=== PATIENT | female | born 1955 | race Two or more races ===

== ENCOUNTER 2024-06-08 11:55 | Inpatient (IN) | payer MEDICAID, OTHER ==
[~2024-06-08] VITALS: Ht 160 cm; Wt 82.5 kg
--- NOTE | 2024-06-08 12:12 | ED.PDOC ---
GI ASSESSMENT HPI Comments 68 y.o female presents to the ED for a chief complaint of abdominal pain that started 5 days ago. Patient reports pain first presents to the right lower/pelvic region and now diffuses throughout upper portion of her abdomen. Patient has only tolerate puree foods and states pain worsens with fluid intake. Patient denies any nausea, vomiting, diarrhea, fever, chills or urinary symptoms. No medical history or allergies reported. Patient denies any sub stance, alcohol or tobacco use. No allergies reported. Chief Complaint: Pelvic Pain Time Seen by MD: 12:06 Reviewed Notes: Nurses Notes, Medications, Allergies Allergies: Coded Allergies: NO KNOWN ALLERGIES (Unverified , 06/08/24) Information Source: Patient Mode of Arrival: Ambulatory Timing: Days (5) Duration: Since onset Quality: Aching Vomitus: None Stool: Normal Severity: Moderate Recent: None Recent Hx of: None Pain Location: Diffuse, RLQ Modifying Factors: Nothing Associated sign and symptoms: Abdominal Pain Past Medical History PAST MEDICAL HISTORY: Denies Surgical History: Denies all surgeries PICTURE HANGER History: No Pertinent PICTURE HANGER History Family History Family History: Reviewed,noncontributory to illness, No family hx of Cancer, No family hx of DM, No family hx of Heart umm, No family hx of HTN, No family hx ofKidney umm, No family hx of Liver umm, No family hx of Lung umm, No family hx of Stroke Social History Smoker: Non-Smoker Alcohol: Denies ETOH Use Drugs: Denies Drug Use Lives In: Home Constitutional: denies: chills, diaphoresis, fatigue, fever, malaise, sweats, weakness, others EENTM: denies: blurred vision, double vision, ear bleeding, ear discharge, ear drainage, ear pain, ear ringing, eye pain, eye redness, hearing loss, mouth pain, mouth swelling, nasal discharge, nose bleeding, nose congestion, nose pain, photophobia, tearing, throat pain, throat swelling, voice changes, others Respiratory: denies: cough, hemoptysis, orthopnea, SOB at rest, shortness of breath, SOB with excertion, stridor, wheezing, others Cardiovascular: denies: chest pain, dizzy spells, diaphoresis, Dyspnea on exertion, edema, irregular heart beat, left arm pain, lightheadedness, palpitations, PND, syncope, others Gastrointestinal: reports: abdominal pain; denies: abdomen distended, blood streaked bowels, constipated, diarrhea, dysphagia, difficulty swallowing, hematemesis, melena, nausea, poor appetite, poor fluid intake, rectal bleeding, rectal pain, vomiting, others Genitourinary: denies: abnormal vagina bleeding, burning, dyspareunia, dysuria, flank pain, frequency, hematuria, incontinence, pain, , vagina discharge, urgency, others Neurological: denies: dizziness, fainting, headache, left sided numbness, left sided weakness, numbness, paresthesia, pre-existing deficit, right sided numbness, right sided weakness, seizure, speech problems, tingling, tremors, weakness, others Musculoskeletal: denies: back pain, gout, joint pain, joint swelling, muscle pain, muscle stiffness, neck pain, others Integumetry: denies: bruises, change in color, change in hair/nails, dryness, laceration, lesions, lumps, rash, wounds, others Allergic/Immunocompromised: denies: Difficulty Healing, Frequent Infections, Hives, Itching, others Hematologic/Lymphatic: denies: anemia, blood clots, easy bleeding, easy bruising, swollen glands, others Endocrine: denies: excessive hunger, excessive sweating, excessive thirst, excessive urination, flushing, intolerance to cold, intolerance to heat, unexplained weight gain, unexplained weight loss, others Psychiatric: denies: anxiety, bipolar disorder, depression, hopeless, panic disorder, schizophrenia, sleepless, suicidal, others All Other Systems: Reviewed and Negative Physical Exam General Appearance: Moderate Distress HEENT: Normal ENT Inspection, Pharynx Normal, TMs Normal Neck: Full Range of Motion, Non-Tender, Normal, Normal Inspection Respiratory: Chest Non-Tender, Lungs Clear, No Accessory Muscle Use, No Respiratory Distress, Normal Breath Sounds Cardiovascular: No Edema, No JVD, No Murmur, No Gallop, Normal Peripheral Pulses, Regular Rate/Rhythm Breast Exam: Deferred Gastrointestinal: No Organomegaly, Non Tender, No Pulsatile Mass, Normal Bowel Sounds, Soft Genitalia: Deferred Pelvic: Deferred Rectal: Deferred Extremities: No calf tenderness, Normal capillary refill, Normal inspection, Normal range of motion, Non-tender, No pedal edema Musculoskeletal : Apperance: Normal Neurologic: Alert, basting cleaner II-XII nml as Tested, No Motor Deficits, Normal Affect, Normal Mood, No Sensory Deficits Cerebellar Function: NOT DONE Reflexes: NOT DONE Skin: Dry, Normal Color, Warm Peripheral Pulses: 3+ Radial (R), 3+ Radial (L) Lymphatic: No Adenopathy Was a procedure done? Was a procedure done?: No GI differential Dx Differential Diagnosis: Constipation, Diverticular disease, Esophagitis, Gastritis/PUD, Gastroenteritis, Inflammatory BD, Ovarian cyst/torsion X-Ray, Labs, Meds, VS Vital Signs Date Time Temp Pulse Resp B/P (MAP) Pulse Ox O2 Delivery O2 Flow Rate FiO2 06/08/24 14:36 66 16 96 Room Air 06/08/24 14:36 98.7 66 17 160/71 (100) 96 98.7 06/08/24 12:05 97.9 86 18 164/86 (112) 96 Lab Test 06/08/24 12:05 06/08/24 11:57 Range/Units White Blood Count 9.0 4.4-10.8 10^3/uL Red Blood Count 4.81 4.0-5.20 10^6/uL Hemoglobin 14.9 12.2-16.2 g/dL Hematocrit 43.8 36.0-46.0 % Mean Corpuscular Volume 91.1 80.0-100.0 fL Mean Corpuscular Hemoglobin 31.1 28.0-32.0 pg Mean Corpuscular Hemoglobin Concent 34.1 32.0-36.0 g/dL Red Cell Distribution Width 13.0 11.8-14.3 % Platelet Count 445 140-450 10^3/uL Mean Platelet Volume 7.0 6.9-10.8 fL Neutrophils (%) (Auto) 69.7 37.0-80.0 % Lymphocytes (%) (Auto) 20.3 10.0-50.0 % Monocytes (%) (Auto) 7.4 0.0-12.0 % Eosinophils (%) (Auto) 2.0 0.0-7.0 % Basophils (%) (Auto) 0.6 0.0-2.0 % Neutrophils # (Auto) 6.3 1.6-8.6 10 ^3/uL Lymphocytes # (Auto) 1.8 0.4-5.4 10 ^3/uL Monocytes # (Auto) 0.7 0-1.3 10 ^3/uL Eosinophils # (Auto) 0.2 0-0.8 10 ^3/uL Basophils # (Auto) 0.1 0-0.2 10 ^3/uL Nucleated Red Blood Cells 0.1 % Sodium Level 142 136-145 mmol/L Potassium Level 4.1 3.5-5.1 mmol/L Chloride Level 108 H 98-107 mmol/L Carbon Dioxide Level 25 20-31 mmol/L Anion Gap 9 5-15 Blood Urea Nitrogen < 5 L 9-23 mg/dL Creatinine 0.70 0.550-1.02 mg/dL Glomerular Filtration Rate Calc 94 >90 mL/min BUN/Creatinine Ratio 7.1 L 10.0-20.0 Serum Glucose 105 74-106 mg/dL Calcium Level 10.2 8.7-10.4 mg/dL Urine Color Colorless Yellow Urine Clarity Clear Clear Urine pH 7.0 5.0-9.0 Urine Specific [place] 1.003 1.001-1.035 Urine Protein Negative Negative Urine Ketones Negative Negative Urine Blood Negative Negative /uL Urine Nitrite Negative Negative Urine Bilirubin Negative Negative Urine Urobilinogen Normal Negative mg/dL Urine Leukocyte Esterase Negative Negative /uL Urine RBC None seen 0 - 4 /hpf Urine WBC None seen 0 - 5 /hpf Urine Squamous Epithelial Cells Few <5 /hpf Urine Bacteria None seen None Seen /hpf Urine Glucose Normal Normal mg/dL Patient alert. Complaining of abdominal pain. Vitals stable. Answering all questions. Abdomen is soft. Continues to have abdominal pain. Possible colitis. Possible gastroenteritis. Explained to the patient. X-Ray, Labs, Meds, VS Comment CLINICAL INFORMATION: 68 years old, Female; enteritis. TECHNIQUE: Axial CT images of the abdomen and pelvis were obtained without IV contrast. Coronal and sagittal reformatted images were obtained, reviewed, and stored. Evaluation of the parenchymal organs is limited without IV contrast. Evaluation of the bowel and mesentery is limited without oral contrast. All CT scans at this medical facility are performed using dose modulation techniques as appropriate to a performed exam including the following: Automated exposure control was utilized; adjustment of the MA and/or KV according to patient size; and use of iterative reconstruction technique. CTDIvol = 20.04 mGy DLP = 1056.39 mGy-cm COMPARISON: None FINDINGS: Lung bases: Atelectasis in the lung bases. Liver: Grossly unremarkable in its noncontrast enhanced appearance. No abnormal density or focal lesion identified. Biliary: Calcified gallstones in the gallbladder. Spleen: Unremarkable. Pancreas: Grossly unremarkable in its noncontrast enhanced appearance. Adrenal glands: 2.6 cm left adrenal nodule, most likely a lipid rich adenoma. Kidneys: No hydronephrosis. No renal or ureteral calculi. Aorta/Vascular: Scattered mild atherosclerotic calcification. No abdominal aortic aneurysm. Retroperitoneum: No mass or lymphadenopathy. Bowel/mesentery: No small bowel obstruction. Appendix is thickened appendix, measuring up to 1 cm in thickness with moderate periappendiceal stranding and trace fluid, consistent with acute appendicitis in the appropriate clinical setting. Scattered small colonic diverticula without adjacent inflammatory changes to suggest diverticulitis. Pelvic organs: Grossly unremarkable. Bladder: Unremarkable. No mass. Abdominal wall: No mass or hernia. Bones: No acute fracture or suspicious intraosseous lesion. IMPRESSION: 1. Findings consistent with acute appendicitis in the appropriate clinical setting. No CT evidence for perforation or abscess at this time. 2. Cholelithiasis. 3. 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 4. Additional findings as detailed above Time of 1ST Reevaluation: 12:10 Reevaluation 1ST: Unchanged Patient Education/Counseling: Diagnosis, Treatment, Prognosis Family Education/Counseling: No Family Present Departure 1 Departure Time of Disposition: 12:28 Impression: Primary Impression: Acute appendicitis Qualified Codes: K35.80 - Unspecified acute appendicitis Additional Impression: Nonspecific colitis Disposition: ADMITTED INPATIENT Admit to: Med Surg Condition: Guarded Critical Care Note Critical Care Time?: Yes (45 min-critical care time only) Stability Stability form required: No I personally scribed for KAMILA AMAYA MD ([email or web address]) on 06/08/24 at 12:12. Electronically submitted by Malou Oneill ([facility]). I personally scribed for KAMILA AMAYA MD ([email or web address]) on 06/08/24 at 15:17. Electronically submitted by Malou Oneill ([facility]). KAMILA AMAYA MD Jun 08, 2024 12:12
[2024-06-08 12:22] LABS: Urine Bacteria None Seen /hpf (None Seen); Urine WBC None Seen /hpf (0 - 5)
[2024-06-08 12:28] LABS: Basophils # (auto) 0.1 10 ^3/uL (0-0.2); Basophils % (auto) 0.6 % (0.0-2.0); Eosinophils # (auto) 0.2 10 ^3/uL (0-0.8); Hematocrit 43.8 % (36.0-46.0); Hemoglobin 14.9 g/dL (12.2-16.2); Lymphocytes # (auto) 1.8 10 ^3/uL (0.4-5.4); Lymphocytes % (auto) 20.3 % (10.0-50.0); Mean Corpuscular Hemoglobin 31.1 pg (28.0-32.0); Mean Corpuscular Hgb Conc. 34.1 g/dL (32.0-36.0); Mean Corpuscular Volume 91.1 fL (80.0-100.0); Monocytes # (auto) 0.7 10 ^3/uL (0-1.3); Monocytes % (auto) 7.4 % (0.0-12.0); Neutrophils # (auto) 6.3 10 ^3/uL (1.6-8.6); Neutrophils % (auto) 69.7 % (37.0-80.0); Nucleated Red Blood Cells % 0.1 %; Platelet Count (auto) 445 10^3/uL (140-450); Red Blood Cells 4.81 10^6/uL (4.0-5.20)
[2024-06-08 12:32] LABS: Urine Blood Negative /uL (Negative); Urine Clarity Clear (Clear); Urine Color Colorless (Yellow); Urine Protein, UAD Negative (Negative); Urine Specific Gravity 1.003 (1.001-1.035); Urine Urobilinogen Normal (Negative)
[2024-06-08 13:08] LABS: Chloride 108 mmol/L (98-107); Potassium 4.1 mmol/L (3.5-5.1); Sodium 142 mmol/L (136-145)
[2024-06-08 13:09] LABS: Anion Gap 9 (5-15); Carbon Dioxide 25 mmol/L (20-31)
[2024-06-08 13:10] LABS: Calcium 10.2 mg/dL (8.7-10.4)
[2024-06-08 13:14] LABS: Glucose 105 mg/dL (74-106)
[2024-06-08 13:49] LABS: BUN/Creatinine Ratio 7.1 (10.0-20.0); Blood Urea Nitrogen < 5 mg/dL (9-23)
--- NOTE | 2024-06-08 15:03 | DVH ---
CLINICAL INFORMATION: 68 years old, Female; enteritis. TECHNIQUE: Axial CT images of the abdomen and pelvis were obtained without IV contrast. Coronal and sagittal reformatted images were obtained, reviewed, and stored. Evaluation of the parenchymal organs is limited without IV contrast. Evaluation of the bowel and mesentery is limited without oral contra st. All CT scans at this medical facility are performed using dose modulation techniques as appropria te to a performed exam including the following: Automated exposure control was utilized; adjustment o f the MA and/or KV according to patient size; and use of iterative reconstruction technique. CTDIvol = 20.04 mGy DLP = 1056.39 mGy-cm COMPARISON: None FINDINGS: Lung bases: Atelectasis in the lung bases. Liver: Grossly unremarkable in its noncontrast enhanced appearance. No abnormal density or focal les ion identified. Biliary: Calcified gallstones in the gallbladder. Spleen: Unremarkable. Pancreas: Grossly unremarkable in its noncontrast enhanced appearance. Adrenal glands: 2.6 cm left adrenal nodule, most likely a lipid rich adenoma. Kidneys: No hydronephrosis. No renal or ureteral calculi. Aorta/Vascular: Scattered mild atherosclerotic calcification. No abdominal aortic aneurysm. Retroperitoneum: No mass or lymphadenopathy. Bowel/mesentery: No small bowel obstruction. Appendix is thickened appendix, measuring up to 1 cm in thickness with moderate periappendiceal stranding and trace fluid, consistent with acute appendicitis in the appropriate clinical setting. Scattered small colonic diverticula without adjacent inflammato ry changes to suggest diverticulitis. Pelvic organs: Grossly unremarkable. Bladder: Unremarkable. No mass. Abdominal wall: No mass or hernia. Bones: No acute fracture or suspicious intraosseous lesion. IMPRESSION: 1. Findings consistent with acute appendicitis in the appropriate clinical setting. No CT evidence fo r perforation or abscess at this time. 2. Cholelithiasis. 3. 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 4. Additional findings as detailed above
[2024-06-08] MEDS: ceFAZolin 1GM/50ML 50 ML IV ONE (16:36)
[2024-06-08 19:25] VITALS: PULSE 66; RESP 16; O2SAT 96
--- NOTE | 2024-06-08 21:28 | DVHHP2 ---
History of Present Illness Reason for Visit: Acute appendicitis History of Present Illness The patient is a 68-year-old female who denies past medical history presented to [facility] ED with complaint of abdominal pain for a proximally 5 days duration. Patient reports symptoms progressively get worse with right lowe r/pelvic region diffuse abdominal pain, rating pain 8/10 numeric scale, getting worse today that prompted this visit. Patient was seen and evaluated in the ED, laboratory data shows WBC 9.0, platelets 445, sodium 142, potassium 4.1, BUN 5, creatinine 0.70, glucose 105. Abdomen/pelvis CT revealing acute appendicitis in the appropriate clinical setting, cholelithiasis. Patient was started on IV antibiotic regimen Ancef, please see medication orders section in the computer. On my assessment, patient denied chest pain, no headache, no dizziness, no diaphoresis, no shortness of breath, no nausea, no vomiting, no fever, no chi lls. Patient was admitted for further evaluation and medical management. Past Medical History Denies past medical history Past Surgical History Denies all surgeries Family History Reviewed, noncontributory to the management of this case. Past Social History The patient lives at home, denies smoking, alcohol or illicit drugs abuse. Review of Systems Constitutional: No: Fever, Chills, Sweats, Weakness, Malaise, Other Eyes: No: Pain, Vision change, Conjunctivae inflammation, Eyelid inflammation, Other, Redness ENT: No: Ear pain, Ear discharge, Nose pain, Nose discharge, Nose congestion, Mouth pain, Mouth swelling, Throat pain, Throat swelling, Other Respiratory: No: Cough, Dry, Shortness of breath, SOB with excertion, Wheezing, Hemoptysis, Pleuritic Pain, Sputum, Wheezing, Other Cardiovascular: No: Chest Pain, Palpitations, Orthopnea, Paroxysmal Noc. Dyspnea, Edema, Lt Headedness, Other Gastrointestinal: Abdominal Pain; No: Nausea, Vomiting, Diarrhea, Constipation, Melena, Hematochezia, Other Genitourinary: No Dysuria, No Frequency, No Incontinence, No Hematuria, No Retention, No Other Musculoskeletal: No: other, neck pain, shoulder pain, arm pain, back pain, hand pain, leg pain, foot pain Skin: No: Rash, Lesions, Jaundice, Bruising, Other Neurological: No: Weakness, Numbness, Incoordination, Change in speech, Confusi on, Seizures, Other Allergies: Coded Allergies: NO KNOWN ALLERGIES (Unverified , 06/08/24) Exam Vital Signs Vital Signs Date Time Temp Pulse Resp B/P (MAP) Pulse Ox O2 Delivery O2 Flow Rate FiO2 06/08/24 19:25 66 16 96 Room Air* 0 21 06/08/24 19:23 164/69 (100) 06/08/24 16:26 98.6 98.6 General Appearance: Alert, Oriented X3, Cooperative, No acute distress HEENT: Atraumatic, PERRLA, EOMI, Mucous membr. moist/pink Respiratory: Clear to auscultation, Normal air movement Cardiovascular: Regular rate, Normal S1, Normal S2, No murmurs Abdominal: Normal bowel sounds, Soft, No hepatospenomegaly, No masses, Other (Reports tenderness) Extremities: No clubbing, No cyanosis, No edema, Normal pulses, No tenderness/swelling Skin: No rashes, No breakdown, No significant lesion Neuro: Normal gait, Normal speech, Strength at 5/5 X4 ext, Normal tone, Sensati on intact, Cranial nerves 3-12 NL, Reflexes 2+ Psych/Mental Status: Mental status NL, Mood NL Labs/Xrays Labs Test 06/08/24 12:05 06/08/24 11:57 Range/Units White Blood Count 9.0 4.4-10.8 10^3/uL Red Blood Count 4.81 4.0-5.20 10^6/uL Hemoglobin 14.9 12.2-16.2 g/dL Hematocrit 43.8 36.0-46.0 % Mean Corpuscular Volume 91.1 80.0-100.0 fL Mean Corpuscular Hemoglobin 31.1 28.0-32.0 pg Mean Corpuscular Hemoglobin Concent 34.1 32.0-36.0 g/dL Red Cell Distribution Width 13.0 11.8-14.3 % Platelet Count 445 140-450 10^3/uL Mean Platelet Volume 7.0 6.9-10.8 fL Neutrophils (%) (Auto) 69.7 37.0-80.0 % Lymphocytes (%) (Auto) 20.3 10.0-50.0 % Monocytes (%) (Auto) 7.4 0.0-12.0 % Eosinophils (%) (Auto) 2.0 0.0-7.0 % Basophils (%) (Auto) 0.6 0.0-2.0 % Neutrophils # (Auto) 6.3 1.6-8.6 10 ^3/uL Lymphocytes # (Auto) 1.8 0.4-5.4 10 ^3/uL Monocytes # (Auto) 0.7 0-1.3 10 ^3/uL Eosinophils # (Auto) 0.2 0-0.8 10 ^3/uL Basophils # (Auto) 0.1 0-0.2 10 ^3/uL Nucleated Red Blood Cells 0.1 % Sodium Level 142 136-145 mmol/L Potassium Level 4.1 3.5-5.1 mmol/L Chloride Level 108 H 98-107 mmol/L Carbon Dioxide Level 25 20-31 mmol/L Anion Gap 9 5-15 Blood Urea Nitrogen < 5 L 9-23 mg/dL Creatinine 0.70 0.550-1.02 mg/dL Glomerular Filtration Rate Calc 94 >90 mL/min BUN/Creatinine Ratio 7.1 L 10.0-20.0 Serum Glucose 105 74-106 mg/dL Calcium Level 10.2 8.7-10.4 mg/dL Urine Color Colorless Yellow Urine Clarity Clear Clear Urine pH 7.0 5.0-9.0 Urine Specific [place] 1.003 1.001-1.035 Urine Protein Negative Negative Urine Ketones Negative Negative Urine Blood Negative Negative /uL Urine Nitrite Negative Negative Urine Bilirubin Negative Negative Urine Urobilinogen Normal Negative mg/dL Urine Leukocyte Esterase Negative Negative /uL Urine RBC None seen 0 - 4 /hpf Urine WBC None seen 0 - 5 /hpf Urine Squamous Epithelial Cells Few <5 /hpf Urine Bacteria None seen None Seen /hpf Urine Glucose Normal Normal mg/dL PATIENT: ANN VILLASEÑORSUSACCT: [id number] UNIT: [id number] : 1955 LOC: ER ROOM / BED: / AGE / SEX: 68 / F ADM STATUS: REG ER SERVICE [id number] ORDERING PHYSICIAN: KAMILA AMAYA MD PROCEDURE(s): ABPL - CT AB PEL WO CON-NO ORAL OR IV REASON: enteritis ORDER NUMBER(s): [id number], ACCESSION NUMBER(s): [id number] CLINICAL INFORMATION: 68 years old, Female; enteritis. TECHNIQUE: Axial CT images of the abdomen and pelvis were obtained without IV contrast. Coronal and sagittal reformatted images were obtained, reviewed, and stored. Evaluation of the parenchymal organs is limited without IV contrast. Evaluation of the bowel and mesentery is limited without oral contrast. All CT scans at this medical facility are performed using dose modulation techniques as appropriate to a performed exam including the following: Automated exposure control was utilized; adjustment of the MA and/or KV according to patient size; and use of iterative reconstruction technique. CTDIvol = 20.04 mGy DLP = 1056.39 mGy-cm COMPARISON: None FINDINGS: Lung bases: Atelectasis in the lung bases. Liver: Grossly unremarkable in its noncontrast enhanced appearance. No abnormal density or focal lesion identified. Biliary: Calcified gallstones in the gallbladder. Spleen: Unremarkable. Pancreas: Grossly unremarkable in its noncontrast enhanced appearance. Adrenal glands: 2.6 cm left adrenal nodule, most likely a lipid rich adenoma. Kidneys: No hydronephrosis. No renal or ureteral calculi. Aorta/Vascular: Scattered mild atherosclerotic calcification. No abdominal aortic aneurysm. Retroperitoneum: No mass or lymphadenopathy. Bowel/mesentery: No small bowel obstruction. Appendix is thickened appendix, measuring up to 1 cm in thickness with moderate periappendiceal stranding and trace fluid, consistent with acute appendicitis in the appropriate clinical setting. Scattered small colonic diverticula without adjacent inflammatory changes to suggest diverticulitis. Pelvic organs: Grossly unremarkable. Bladder: Unremarkable. No mass. Abdominal wall: No mass or hernia. Bones: No acute fracture or suspicious intraosseous lesion. IMPRESSION: 1. Findings consistent with acute appendicitis in the appropriate clinical s etting. No CT evidence for perforation or abscess at this time. 2. Cholelithiasis. 3. 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 4. Additional findings as detailed above Assessment/Plan Assessment/Plan Acute appendicitis Nonspecific colitis Unspecified acute appendicitis Plan 1. Admit to telemetry unit 2. Breathing treatment 3. Pain control management 4. IV antibiotic management 5. Management of fluids and electrolytes 6. Consultation for surgery 7. Diagnostic test abdomen/pelvis CT 8. DVT prophylaxis on SCDs 9. Repeat labs CBC, CMP in a.m. 10. Home medication reviewed and reconciled 11. Continue with current medical management 12. Treatment plan discussed with patient and RN. Patient verbalized underst anding. Plan discussed with: Patient, Other (RN) My Orders Orders - LADONNA MONTGOMERY DNP Procedure Category Date Status Time Cefazolin Ancef PHA 06/08/24 Transmitted 22:00 Admit ADMIT 06/08/24 Transmitted 21:19 Allergies MARIEL 06/08/24 Transmitted 21:19 Code Status CODE 06/08/24 Transmitted 21:19 Sodium Chloride Lock PHA 06/08/24 Transmitted (Saline Lock Ns) 22:00 Oxygen Per Hour RT 06/08/24 Transmitted 21:19 Hydrocodone-Acet PHA 06/08/24 Transmitted 5/325mg Tab (Henry 21:30 Ondansetron Hcl PHA 06/08/24 Transmitted (Zofran) 21:30 Docusate Sodium PHA 06/08/24 Transmitted Capsule (Colace 21:30 Complete Blood Count LAB 06/09/24 Verified 04:00 Comprehensive LAB 06/09/24 Verified Metabolic Panel 04:00 Npo (Nothing By DIET 06/09/24 Transmitted Mouth) Diet Breakfast Condition: Serious [facility] 06/08/24 Transmitted 21:19 Acetaminophen Tablet [facility] 06/08/24 Transmitted (Tylenol Tablet) 21:30 Bedrest With Bathroom MARIEL 06/08/24 Transmitted Privileg 21:19 Morphine Sulfate [facility] 06/08/24 Transmitted Injection 21:30 Sequential [facility] 06/08/24 Transmitted Compression Device Nitroglycerin [facility] 06/08/24 Transmitted Sublingual (Ntrostat 21:30 Morphine Sulfate PHA 06/08/24 Transmitted Injection 21:30 Notify Md Of Changes [facility] 06/08/24 Transmitted From Base 21:19 Dental Receptionist For [facility] 06/08/24 Transmitted 24 Hours 21:19 Emergency Dysrhythmia [facility] 06/08/24 Transmitted Protocol 21:19 Rhythm Strips Once [facility] 06/08/24 Transmitted Every Shift 21:19 Oxygen By Nasal RT 06/08/24 Transmitted Cannula 21:19 D5w/Sod Chl 0.45% 1/2 [facility] 06/08/24 Transmitted NS 21:30 Problem List: (1) Acute appendicitis (2) Nonspecific colitis (3) Unspecified acute appendicitis Date of Service: Jun 08, 2024 Billing Provider: LADONNA MONTGOMERY DNP Common Visit Codes: [id number] INP/OBS CARE (HIGH) LADONNA MONTGOMERY DNP Jun 08, 2024 21:28
[2024-06-08] MEDS ORDERED: NITROGLYCERIN 0.4 MG SL TAB SL PRN (21:30)
[2024-06-08] MEDS ORDERED: ACETAMINOPHEN 325 MG TAB PO PRN (21:30)
[2024-06-08] MEDS ORDERED: HYDROcodone-ACET 5/325MG TAB PO PRN (21:30)
[2024-06-08] MEDS ORDERED: ONDANSETRON HCL 4 MG/2 ML VIAL IV PRN (21:30)
[2024-06-08] MEDS ORDERED: MORPHINE SULFATE INJ 2 MG/ml SYRG IV PRN (21:30)
[2024-06-08] MEDS ORDERED: DOCUSATE SOD 100 MG CAP PO PRN (21:30)
[2024-06-08] MEDS: SODIUM CHLOR 0.9% PF (SALINE LOCK) 10ML VIAL/SYR IV SCH (22:02)
[2024-06-08] MEDS: ceFAZolin 1GM/50ML 50 ML IV SCH (22:02)
[2024-06-08] MEDS: D5W/SOD CHL 0.45% 1,000 ML IV SCH (22:02)
[2024-06-08 23:45] VITALS: BP 178/86; PULSE 74; RESP 18; TEMP 98; O2SAT 0; O2SAT 95
[2024-06-09] VITALS (10 sets, daily range): BP systolic 139–178; BP diastolic 76–86; PULSE 66–92; RESP 16–19; TEMP 97.8–98.8; O2SAT 92–96
[2024-06-09 06:29] LABS: Basophils # (auto) 0.1 10 ^3/uL (0-0.2); Basophils % (auto) 0.7 % (0.0-2.0); Eosinophils # (auto) 0.1 10 ^3/uL (0-0.8); Eosinophils % (auto) 1.3 % (0.0-7.0); Hematocrit 40.9 % (36.0-46.0); Hemoglobin 14.1 g/dL (12.2-16.2); Lymphocytes # (auto) 1.4 10 ^3/uL (0.4-5.4); Lymphocytes % (auto) 15.7 % (10.0-50.0); Mean Corpuscular Hemoglobin 31.7 pg (28.0-32.0); Mean Corpuscular Hgb Conc. 34.6 g/dL (32.0-36.0); Mean Corpuscular Volume 91.6 fL (80.0-100.0); Monocytes # (auto) 0.7 10 ^3/uL (0-1.3); Monocytes % (auto) 7.9 % (0.0-12.0); Neutrophils # (auto) 6.9 10 ^3/uL (1.6-8.6); Neutrophils % (auto) 74.4 % (37.0-80.0); Platelet Count (auto) 428 10^3/uL (140-450); Red Blood Cells 4.47 10^6/uL (4.0-5.20); Red Cell Distribution Width 12.8 % (11.8-14.3); White Blood Cell 9.2 10^3/uL (4.4-10.8)
[2024-06-09 06:44] LABS: Alanine Aminotransferase 25 U/L (7-40); Albumin 4.4 g/dL (3.2-4.8); Alkaline Phosphatase 125 U/L (46-116); Anion Gap 10 (5-15); Aspartate Aminotransferase 50 U/L (13-40); Bilirubin, Total 0.6 mg/dL (0.2-1.0); Calcium 9.8 mg/dL (8.7-10.4); Carbon Dioxide 24 mmol/L (20-31); Chloride 107 mmol/L (98-107); Glucose 143 mg/dL (74-106); Potassium 3.7 mmol/L (3.5-5.1); Sodium 141 mmol/L (136-145); Total Protein 7.3 g/dL (5.7-8.2)
[2024-06-09 06:51] LABS: BUN/Creatinine Ratio 7.5 (10.0-20.0); Blood Urea Nitrogen < 5 mg/dL (9-23)
[2024-06-09] MEDS: MORPHINE SULFATE INJ 2 MG/ml SYRG IV PRN ×2 (13:04→20:30)
[2024-06-09] MEDS: HEPARIN SODIUM (PORCINE) 5000 UNITS/ML 1ML VIAL ONE (15:26)
--- NOTE | 2024-06-09 16:55 | DVH ---
EXAM: XY CHEST XRAY 1 VIEW TECHNIQUE: Single frontal chest radiograph CLINICAL HISTORY: pre op COMPARISON: None Findings/Impression: Frontal chest radiograph demonstrates no acute osseous or superficial soft tissue abnormalities. The trachea is midline. The cardiac silhouette and mediastinum are within normal limits. Moderate low lung volumes with bronchovascular crowding. No pneumothorax, pleural effusions, or consolidations.
[2024-06-09] MEDS ORDERED: fentaNYL CITRATE 100 MCG/2 ML VL ONE (17:00)
[2024-06-09] MEDS ORDERED: ROCURONIUM 10MG/ML 10ML VIAL IV ONE (17:00)
[2024-06-09] MEDS ORDERED: PROPOFOL 10 MG/ML 20 ML IV ONE (17:00)
[2024-06-09] MEDS ORDERED: SUCCINYLCHOLINE CHLORIDE 20 MG/ML 10ML VIAL IV ONE (17:02)
--- NOTE | 2024-06-09 17:07 | DVHPN2 ---
Subjective I am assuming the care of the patient from today onwards who was under the care of the hospitalist team. To be noted patient does have diagnosis of acute appendicitis, General surgery was never notified until I came to see the patient. General surgery has been consulted now. Reviewed: Care Plan Changes from previous H/P or p: No Changes Eyes: No Pain, No Vision change, No Conjunctivae inflammation, No Eyelid inflammation, No Other, No Redness ENT: No Ear pain, No Ear discharge, No Nose pain, No Nose discharge, No Nose congestion, No Mouth pain, No Mouth swelling, No Throat pain, No Throat swelling, No Other Cardiovascular: No Chest Pain, No Palpitations, No Orthopnea, No Paroxysmal Noc. Dyspnea, No Edema, No Lt Headedness, No Other Respiratory: No Cough, No Dry, No Shortness of breath, No SOB with excertion, No Wheezing, No Hemoptysis, No Pleuritic Pain, No Sputum, No Other Gastrointestinal: No Nausea, No Vomiting; Abdominal Pain; No Diarrhea, No Constipation, No Melena, No Hematochezia, No Other Genitourinary: No Dysuria, No Frequency, No Incontinence, No Hematuria, No Retention, No Other Musculoskeletal: No other, No neck pain, No shoulder pain, No arm pain, No back pain, No hand pain, No leg pain, No foot pain Skin: No Rash, No Lesions, No Jaundice, No Bruising, No Other Objective Vitals Vital Signs Date Time Temp Pulse Resp B/P (MAP) Pulse Ox O2 Delivery O2 Flow Rate FiO2 06/09/24 13:04 69 18 148/77 06/09/24 13:00 98.0 94 98.0 06/09/24 08:00 Room Air* 0 21 Intake/Output Intake and Output 06/09/24 07:00 Intake Total 150 ml Balance 150 ml Intake Oral 0 ml IV Total 150 ml Exam HEENT pupils are reactive Neck is supple CV is S1-S2 regular rate and rhythm History bilaterally GI positive bowel sounds soft positive tenderness in the right lower quadrant with no guarding no rigidity Extremity no edema [employer] no motor deficits Medications Current Medications Medications Dose Ordered Sig/Ulices Route Start Time Stop Time Status Last Admin Dose Admin Cefazolin Sodium 50 ml @ 100 mls/hr Q8HR IV 06/08/24 22:00 06/09/24 13:03 100 MLS/HR Sodium Chloride 10 ml Q8HR IV 06/08/24 22:00 06/09/24 13:04 10 ML Acetaminophen/ Hydrocodone Bitart 1 tab Q4HP PRN PO 06/08/24 21:30 Ondansetron HCl 4 mg Q4HP PRN IV 06/08/24 21:30 Docusate Sodium 100 mg BIDPRN PRN PO 06/08/24 21:30 Acetaminophen 650 mg Q6HP PRN PO 06/08/24 21:30 Morphine Sulfate 2 mg Q4HPRN PRN IV 06/08/24 21:30 06/09/24 13:04 2 MG Nitroglycerin 0.4 mg Q5MINP PRN SL 06/08/24 21:30 Morphine Sulfate 2 mg Q30M PRN IV 06/08/24 21:30 Dextrose/Sodium Chloride 1,000 ml @ 50 mls/hr Q20H IV 06/08/24 21:30 06/08/24 22:02 50 MLS/HR Laboratory Results Laboratory Tests 06/09/24 05:36 Chemistry Test 06/09/24 05:36 Albumin 4.4 g/dL (3.2-4.8) Calcium Level 9.8 mg/dL (8.7-10.4) Total Protein 7.3 g/dL (5.7-8.2) Coagulation Test 06/09/24 16:45 Prothrombin Time Pending Prothrombin Time INR Pending Activated Partial Thromboplast Time Pending LFT Test 06/09/24 05:36 Alanine Aminotransferase (ALT) 25 U/L (7-40) Alkaline Phosphatase 125 U/L (46-116) H Aspartate Amino Transferase (AST) 50 U/L (13-40) H Total Bilirubin 0.6 mg/dL (0.2-1.0) Urinalysis Test 06/08/24 11:57 Urine Color Colorless (Yellow) Urine Clarity Clear (Clear) Urine pH 7.0 (5.0-9.0) Urine Specific [place] 1.003 (1.001-1.035) Urine Protein Negative (Negative) Urine Ketones Negative (Negative) Urine Blood Negative /uL (Negative) Urine Nitrite Negative (Negative) Urine Bilirubin Negative (Negative) Urine Urobilinogen Normal mg/dL (Negative) Urine Leukocyte Esterase Negative /uL (Negative) Urine RBC None seen /hpf (0 - 4) Urine WBC None seen /hpf (0 - 5) Urine Squamous Epithelial Cells Few /hpf (<5) Urine Bacteria None seen /hpf (None Seen) Urine Glucose Normal mg/dL (Normal) Assessment/Plan Assessment/Plan 68-year-old female with no significant past medical history, presented to the hospital with abdominal pain in the right lower quadrant which worsens with the fluid intake found to have 1. Acute appendicitis without any perforation 2. Transaminitis 3. Moderate obesity class 1 -strict NPO, IV fluids, IV antibiotics, general surgery consultation -we will get baseline EKG, chest x-ray. Plan discussed with: Patient, Daughter My Orders Orders - CICI JARRETT MD Procedure Category Date Status Time * Surgical Consult CONS 06/09/24 Transmitted Chest Xray 1 View XY 06/09/24 Resulted 16:05 PTPTT LAB 06/09/24 In Process 16:29 Type And Screen BBK 06/09/24 In Process 16:31 Date of Service: Jun 09, 2024 Billing Provider: CICI JARRETT MD Common Visit Codes: [id number] INP/OBS CARE(HIGH), NOT BILLABLE CICI JARRETT MD Jun 09, 2024 17:07
[2024-06-09] MEDS ORDERED: metroNIDAZOLE 500MG/100ML 100 ML IV SCH (17:15)
[2024-06-09 17:23] LABS: INR 1.07 (0.9-1.15); Partial Thromboplastin Time 25.2 SEC (24.5-34.5); Prothrombin Time 11.3 sec (9.3-11.8)
[2024-06-09] MEDS: cefOXitin 2GM/100ML 100 ML IV ONE (17:35)
[2024-06-09] MEDS ORDERED: ePHEDrine SULFATE 50 MG/ML AMP ONE (17:51)
[2024-06-09] MEDS ORDERED: ONDANSETRON HCL 4 MG/2 ML VIAL ONE (17:52)
[2024-06-09] MEDS ORDERED: DexAMETHasone SOD PHOS 10MG/1ML VIAL INJ ONE (17:52)
[2024-06-09] MEDS: LIDOCAINE 1% HCL (LOCAL ANESTH.) INJ 20ML MDV ONE (17:57)
[2024-06-09] MEDS: BUPIVACAINE HCL 50 ML ONE (17:57)
[2024-06-09] MEDS ORDERED: MEPERIDINE HCL (50 MG/ML) 1 ML VIAL ONE (18:14)
[2024-06-09] MEDS ORDERED: SUGAMMADEX 200mg/2ml Vial (100MG/ML) IV ONE (18:38)
[2024-06-09] MEDS ORDERED: MEPERIDINE HCL (25 MG/ML) 1ML VIAL IV PRN (19:00)
[2024-06-09] MEDS ORDERED: ONDANSETRON HCL 4 MG/2 ML VIAL IV ONE (19:00)
[2024-06-09] MEDS ORDERED: HYDROcodone-ACET 10/325MG TAB PO PRN (19:00)
[2024-06-09] MEDS ORDERED: HYDROmorphone HCL 2 MG/ML VL/or syr IV PRN (19:00)
[2024-06-09] MEDS ORDERED: METOCLOPRAMIDE HCL 5MG/ml INJ 2ml VIAL IV ONE (19:00)
[2024-06-09] MEDS: D5W/SOD CHL 0.45% 1,000 ML IV SCH (20:21)
--- NOTE | 2024-06-09 20:26 | DVHOP ---
DATE OF SURGERY: 06/09/2024 PREOPERATIVE DIAGNOSIS: Acute appendicitis. POSTOPERATIVE DIAGNOSIS: Perforated acute appendicitis. PROCEDURES: Laparoscopic lysis of adhesions, drainage of intra-abdominal abscess and laparoscopic appendectomy. SURGEON: Benson Finley MD PENS AND PENCILS DIPPER: None. ANESTHESIOLOGIST: Dr. Bledsoe. ANESTHESIA: General by means of endotracheal intubation. INTRAOPERATIVE FINDINGS: Dense adhesions involving the terminal ileum over the appendix following number of appendix adherent to abdominal pelvic sidewall as well as to the cecum. Following number contained abscess. ESTIMATED BLOOD LOSS: Minimal. INTRAVENOUS FLUIDS: Per anesthesia charting. URINE OUTPUT: Not recorded, given Lopez catheter was not inserted. DRAINS: A 19 Hai drain. IMPLANTS: Endo-YARELIS kirk. SPECIMEN: Appendix. COMPLICATIONS: None other than difficult procedure secondary to above-mentioned intraoperative findings adding complexity as well as time to otherwise routine procedure. ESTIMATED BLOOD LOSS: Approximately 30 mL. Procedure well tolerated and transferred to recovery room in a stable condition. INDICATION FOR PROCEDURE: The patient is a 68-year-old female, who was admitted to the medical service last night. I was not called until 4:00 p.m. today, informing that the patient had acute appendicitis and was admitted to the medical service. Upon examination, the patient had a benign abdomen. However, CT scan findings demonstrated evidence of acute appendicitis. Based on the above-mentioned information, she was recommended to undergo a laparoscopic, possible open appendectomy. The procedure, risks and benefits were explained in a detailed and extensive fashion. All other questions were answered. She understood and agreed to proceed. DESCRIPTION OF PROCEDURE: The patient was taken to the operating room. She was placed in a dorsal decubitus position on the operating table. Once adequate anesthesia was achieved, the abdomen was widely prepped and draped. Anesthesia was achieved. The left arm was tucked to her side, paying careful attention on providing adequate positioning as well as padding to prevent any potential injuries. The abdomen and pelvis were widely prepped and draped in the usual sterile fashion. She received prophylactic antibiotics. My attention was directed towards the periumbilical region where local anesthesia consisting of 1% lidocaine, 0.5% Marcaine was infiltrated. The abdominal wall was retracted anteriorly by means of towel clamps and a Veress needle was inserted into the abdominal cavity. Pneumoperitoneum of 15 mmHg was achieved. My attention was then directed to the epigastric midline region where local anesthesia consisting of 1% lidocaine, 0.5% Marcaine was infiltrated. A 12-mm trocar was placed into the abdominal cavity and a 5-mm 30-degree laparoscope was inserted into the abdominal cavity. A thorough survey of the abdominal cavity did not reveal any evidence of injury or bleeding upon entry. The Veress needle was removed under direct laparoscopic visualization. My attention was directed towards the left side of the abdomen where 5-mm trocars x 2 were placed with preemptive local anesthesia as well as under direct laparoscopic visualization. The [email or web address] graspers were inserted into the abdominal cavity. The terminal ileum was adherent and covering the appendix. It was carefully dissected, revealing an acutely inflamed appendix with a contained small abscess. The abscess was immediately suctioned with a laparoscopic suction. The appendix was then carefully mobilized from the cecum. It had demonstrated perforation in the mid section of the appendix. The appendix was carefully dissected. A mesenteric window was created, in what was thought to be the base of the appendix, at the time. Using a 45-mm Endo-YARELIS stapler with a blue cartridge, the appendix was divided. The mesoappendix was divided with a white cartridge using a stapler device. Appendix was placed in an EndoCatch bag and exteriorized via the epigastric trocar site. The 12-mm trocar was then placed. The 5-mm 30-degree laparoscope was inserted into the abdominal cavity. Careful inspection of the abdominal cavity revealed that the portion of the appendix was still in place. A mesoappendiceal window was created at the base of the appendix, which was this time, clearly visualized. Using the same stapler device with a blue cartridge, the appendix was divided at the base and the mesoappendix was divided with the same stapler device using a white cartridge. The appendix retrieved through the 12-mm trocar site. The 12-mm trocar was replaced. At this time, I dedicated my attention inspecting the staple line. The area was copiously irrigated with sterile saline solution. The fluid was evacuated. The staple line was intact and there was no evidence of active bleeding. At this time, a 19 Hai was placed in the right lower quadrant region in the area of the staple line and was exteriorized via the left lower quadrant trocar site. It was secured to the skin by means of a 2-0 silk suture. At this time, the epigastric fascial defect was closed with a Dov-Noel device and a #1 Vicryl in a [id number] fashion under direct laparoscopic visualization. The pneumoperitoneum was allowed to evacuate. The remaining laparoscopic equipment was removed from the patient. The wounds were washed and dried. Sterile dressings were applied and dried. The skin was closed with 4-0 Monocryl in subcuticular fashion. Sterile dressings were applied. The patient tolerated well procedure. There were no complications. It was a difficult procedure as previously mentioned. She was successfully extubated in the operating room and transferred to recovery room in a stable condition. MD CRISTIAN Hernandez/RONEY/CHRIST TID: [id number] RECEIPT: [id number] MTDD
--- NOTE | 2024-06-09 22:09 | DVHINCON2 ---
DATE OF CONSULTATION: 06/09/2024 REFERRING PHYSICIAN: Dr. Cobian. CONSULTING PHYSICIAN: Benson Finley MD. REASON FOR CONSULTATION: Acute appendicitis. HISTORY OF PRESENT ILLNESS: The patient is a 68-year-old female admitted to the medical service yesterday night with chief complaint of right lower quadrant abdominal pain since Monday. She admitted to subjective fevers, diaphoresis and chills. She also experienced very limited chest discomfort. She denied objective fevers, further chills, nausea, vomiting, hemoptysis, hematemesis, bilious emesis, further episodes of chest pain, shortness of breath, unintentional weight loss, night sweats, melena or hematochezia. PAST MEDICAL HISTORY: Significant for morbid obesity and prediabetes. PAST SURGICAL HISTORY: Cataract surgery. MEDICATIONS: Denies. ALLERGIES: TO IBUPROFEN CAUSES SWELLING OF THE LIPS AND MOUTH. SOCIAL HISTORY: Denies smoking cigarettes, alcohol or drug use, marijuana or vaping. FAMILY HISTORY: Noncontributory. REVIEW OF SYSTEMS: NEURO: Negative. PSYCH: Negative. ENDOCRINE: Negative. ENT: Negative. CARDIOVASCULAR: Negative. PULMONARY: Negative. GASTROINTESTINAL: As above. GENITOURINARY: Negative. HEME/ID: Negative. LYMPHATICS: Negative. MUSCULOSKELETAL: Negative. SKIN: Negative. PHYSICAL EXAMINATION: GENERAL: She is lying comfortably in bed. She is calm, pleasant and in no distress. She is afebrile with stable vital signs with exception of hypertension. NEUROLOGIC: Grossly intact, alert, awake, oriented x3. HEAD, EARS, EYES, NOSE AND THROAT: Normocephalic. Pupils are equally round. Extraocular muscles are intact. Trachea is midline. HEART: Normal heart rate. Hypertensive. LUNGS: Effortless breathing. Normal oxygen saturation and respiratory rate. ABDOMEN: Soft, obese, nondistended and nontender. Her body habitus significantly hinders examination. EXTREMITIES: No edema or tenderness. LABORATORY DATA: I reviewed her labs, which are essentially remarkable for hyperglycemia of 143, elevated alkaline phosphatase and AST. The rest of the labs is essentially unremarkable. Coagulation parameters are still pending. CT scan of the abdomen and pelvis was reviewed with corresponding report. Evidence of a thickened appendix with periappendiceal stranding. No other significant findings. ASSESSMENT: A 68-year-old female with acute appendicitis. PLANS AND RECOMMENDATIONS: I had a lengthy discussion with the patient and her daughter and I recommended a laparoscopic, possible open appendectomy. The procedure, risks and benefits were explained in a detailed and extensive fashion. She was made aware of potential complications such as bleeding, infection, need for additional procedures, anastomotic staple line leak, injury to internal organs, blood vessels and/or nerves, blood clots in leg/lungs, heart attack, stroke and/or . All questions were answered. She understood and agreed to proceed. Thank you Dr. Cobian for allowing me to participate in the care of your patient. I will follow her with you MD CRISTIAN Hernandez/NELLA TID: [id number] RECEIPT: [id number]
[2024-06-09] MEDS: PIPERACILLIN-TAZOB 3.375GM 100 ML IV SCH (22:43)
[2024-06-10] VITALS (8 sets, daily range): BP systolic 108–135; BP diastolic 56–83; PULSE 65–88; RESP 16–18; TEMP 97.7–98.7; O2SAT 90–98
[2024-06-10] MEDS: PANTOPRAZOLE 40 MG TAB PO SCH (05:20)
[2024-06-10 08:43] LABS: Hepatitis B Surface Antigen Negative (Negative)
[2024-06-10] MEDS: ENOXAPARIN SOD 40 MG/0.4 ML SYRINGE SC SCH (09:01)
[2024-06-10 09:05] LABS: Hepatitis C Antibody Negative (Negative)
--- NOTE | 2024-06-10 14:17 | DVHPN2 ---
Subjective Patient underwent laparoscopic appendectomy. Reviewed: Care Plan Changes from previous H/P or p: No Changes Eyes: No Pain, No Vision change, No Conjunctivae inflammation, No Eyelid inflammation, No Other, No Redness ENT: No Ear pain, No Ear discharge, No Nose pain, No Nose discharge, No Nose congestion, No Mouth pain, No Mouth swelling, No Throat pain, No Throat swelling, No Other Cardiovascular: No Chest Pain, No Palpitations, No Orthopnea, No Paroxysmal Noc. Dyspnea, No Edema, No Lt Headedness, No Other Respiratory: No Cough, No Dry, No Shortness of breath, No SOB with excertion, No Wheezing, No Hemoptysis, No Pleuritic Pain, No Sputum, No Other Gastrointestinal: No Nausea, No Vomiting; Abdominal Pain; No Diarrhea, No Constipation, No Melena, No Hematochezia, No Other Genitourinary: No Dysuria, No Frequency, No Incontinence, No Hematuria, No Retention, No Other Musculoskeletal: No other, No neck pain, No shoulder pain, No arm pain, No back pain, No hand pain, No leg pain, No foot pain Skin: No Rash, No Lesions, No Jaundice, No Bruising, No Other Objective Vitals Vital Signs Date Time Temp Pulse Resp B/P (MAP) Pulse Ox O2 Delivery O2 Flow Rate FiO2 06/10/24 13:00 98.0 72 18 123/60 (81) 90 98.0 06/10/24 08:00 Nasal Cannula* 2 28 Intake/Output Intake and Output 06/10/24 07:00 Intake Total 230 ml Output Total 0 ml Balance 230 ml Intake Oral 0 ml IV Total 230 ml Output Drainage Total 0 ml # Voids 2 Exam HEENT pupils are reactive Neck is supple CV is S1-S2 regular rate and rhythm History bilaterally GI positive bowel sounds soft positive tenderness in the right lower quadrant with no guarding no rigidity Extremity no edema [employer]TEGR[employer]GER no motor deficits Medications Current Medications Medications Dose Ordered Sig/Ulices Route Start Time Stop Time Status Last Admin Dose Admin Sodium Chloride 10 ml Q8HR IV 06/08/24 22:00 06/10/24 13:25 10 ML Ondansetron HCl 4 mg Q4HP PRN IV 06/08/24 21:30 Docusate Sodium 100 mg BIDPRN PRN PO 06/08/24 21:30 Nitroglycerin 0.4 mg Q5MINP PRN SL 06/08/24 21:30 Morphine Sulfate 2 mg Q30M PRN IV 06/08/24 21:30 Dextrose/Sodium Chloride 1,000 ml @ 75 mls/hr [id number] IV 06/09/24 19:00 06/10/24 09:01 75 MLS/HR Acetaminophen/ Hydrocodone Bitart 1 tab Q4HP PRN PO 06/09/24 19:00 Morphine Sulfate 2 mg Q2HP PRN IV 06/09/24 19:00 06/10/24 09:02 2 MG Acetaminophen/ Hydrocodone Bitart 1 tab Q4HP PRN PO 06/09/24 19:00 Enoxaparin Sodium 40 mg DAILY SC 06/10/24 10:00 06/10/24 09:01 40 MG Pantoprazole Sodium 40 mg DAILY@0600 PO 06/10/24 06:00 06/10/24 05:20 40 MG Piperacillin Sod/ Tazobactam Sod 100 ml @ 25 mls/hr Q8HR IV 06/09/24 22:00 06/10/24 13:51 25 MLS/HR Laboratory Results Laboratory Tests 06/09/24 05:36 Coagulation Test 06/09/24 16:45 Prothrombin Time 11.3 sec (9.3-11.8) Prothrombin Time INR 1.07 (0.9-1.15) Activated Partial Thromboplast Time 25.2 SEC (24.5-34.5) Urinalysis Test 06/08/24 11:57 Urine Color Colorless (Yellow) Urine Clarity Clear (Clear) Urine pH 7.0 (5.0-9.0) Urine Specific [place] 1.003 (1.001-1.035) Urine Protein Negative (Negative) Urine Ketones Negative (Negative) Urine Blood Negative /uL (Negative) Urine Nitrite Negative (Negative) Urine Bilirubin Negative (Negative) Urine Urobilinogen Normal mg/dL (Negative) Urine Leukocyte Esterase Negative /uL (Negative) Urine RBC None seen /hpf (0 - 4) Urine WBC None seen /hpf (0 - 5) Urine Squamous Epithelial Cells Few /hpf (<5) Urine Bacteria None seen /hpf (None Seen) Urine Glucose Normal mg/dL (Normal) Assessment/Plan Assessment/Plan 68-year-old female with no significant past medical history, presented to the hospital with abdominal pain in the right lower quadrant which worsens with the fluid intake found to have 1. Acute appendicitis with contained perforation status post laparoscopic appendectomy 2. Transaminitis 3. Moderate obesity class 1 -strict NPO, IV fluids, IV antibiotics, general surgery consultation appreciated -physical therapy evaluation and treatment Plan discussed with: Patient My Orders Orders - CICI JARRETT MD Procedure Category Date Status Time * Surgical Consult CONS 06/09/24 Transmitted Chest Xray 1 View XY 06/09/24 Resulted 16:05 Date of Service: Jun 10, 2024 Billing Provider: CICI JARRETT MD Common Visit Codes: NOT BILLABLE CICI JARRETT MD Jun 10, 2024 14:17
--- NOTE | 2024-06-10 18:42 | DVHPN2 ---
Progress Note Date Seen: Jun 10, 2024 Medical Necessity Reason Pt with a Central, PICC or Fol: No Subjective Review of Systems Pt feels well. Daughter at bedside. She denies abdominal pain, N/V. Tolerated diet. She wants to go home. Objective vital signs Vital Sign Date Time Temp Pulse Resp B/P (MAP) Pulse Ox O2 Delivery O2 Flow Rate FiO2 06/10/24 16:53 98.7 68 18 114/57 (76) 94 98.7 06/10/24 08:00 Nasal Cannula* 2 28 Total Intake and Output 06/09/24 06/09/24 06/10/24 15:00 23:00 07:00 Intake Total 130 ml 100 ml Output Total 0 ml Balance 130 ml 100 ml medications Current Medications Medications Dose Ordered Sig/Ulices Route Start Time Stop Time Status Last Admin Dose Admin Sodium Chloride 10 ml Q8HR IV 06/08/24 22:00 06/10/24 13:25 10 ML Ondansetron HCl 4 mg Q4HP PRN IV 06/08/24 21:30 Docusate Sodium 100 mg BIDPRN PRN PO 06/08/24 21:30 Nitroglycerin 0.4 mg Q5MINP PRN SL 06/08/24 21:30 Morphine Sulfate 2 mg Q30M PRN IV 06/08/24 21:30 Dextrose/Sodium Chloride 1,000 ml @ 75 mls/hr [id number] IV 06/09/24 19:00 06/10/24 09:01 75 MLS/HR Acetaminophen/ Hydrocodone Bitart 1 tab Q4HP PRN PO 06/09/24 19:00 Morphine Sulfate 2 mg Q2HP PRN IV 06/09/24 19:00 06/10/24 09:02 2 MG Acetaminophen/ Hydrocodone Bitart 1 tab Q4HP PRN PO 06/09/24 19:00 Enoxaparin Sodium 40 mg DAILY SC 06/10/24 10:00 06/10/24 09:01 40 MG Pantoprazole Sodium 40 mg DAILY@0600 PO 06/10/24 06:00 06/10/24 05:20 40 MG Piperacillin Sod/ Tazobactam Sod 100 ml @ 25 mls/hr Q8HR IV 06/09/24 22:00 06/10/24 13:51 25 MLS/HR Examination AFVSS. Abdomen soft, ND and NT. Incision C/D/I. Drain with light ss fluid. laboratory and microbiology Laboratory Tests 06/09/24 05:36 Test 06/09/24 05:36 Range/Units Serum Glucose 143 H 74-106 mg/dL Problem List/Assessment/Plan Problems(with codes): (1) Acute appendicitis Problem List/Assessment/Plan May discharge home from surgical standpoint. Drain teaching. Discharge on Augmentin and Flagyl for 12 days and [place] 5/325 1 tab q 6 hrs PRN pain #30. Follow up with me as outpt. Pt must call [phone] for appointment. Remove dressings tomorrow, leave steri strips on. May shower. Resume recommended diet by PCP Plan discussed with: Patient, Daughter, Other (Dr. Cobian) My Orders My Orders Orders - HOSSEIN JEFFERSON MD Procedure Category Date Status Time Homar Drain To Closed MARIEL 06/09/24 In Process Suction 18:43 D5w/Sod Chl 0.45% PHA 06/09/24 In Process (D5w 1/2ns) 19:00 Hydrocodone-Acet PHA 06/09/24 In Process 5/325mg Tab ([place] 19:00 Morphine Sulfate PHA 06/09/24 In Process Injection 19:00 Hydrocodone-Acet PHA 06/09/24 In Process 10/325mg Tab ([place] 19:00 Enoxaparin Sodium PHA 06/10/24 In Process (Lovenox) 10:00 Pantoprazole Tablet PHA 06/10/24 In Process (Protonix Tablet) 06:00 Consistent DIET 06/10/24 Transmitted Carb(Ccho)Diabetes Breakfast Piperacillin-Tazob PHA 06/09/24 In Process 3.375gm (Zosyn 3.375g 22:00 HOSSEIN JEFFERSON MD Jun 10, 2024 18:42
[2024-06-11] VITALS (8 sets, daily range): BP systolic 124–154; BP diastolic 52–73; PULSE 66–83; RESP 16–18; TEMP 97.4–99; O2SAT 90–96
[2024-06-11] MEDS: HYDROcodone-ACET 5/325MG TAB PO PRN (05:17)
--- NOTE | 2024-06-11 17:06 | DVHPN2 ---
Progress Note Date Seen: Jun 11, 2024 Medical Necessity Reason Pt with a Central, PICC or Fol: No Subjective Review of Systems Pt feeling well. Denies any complaints Objective vital signs Vital Sign Date Time Temp Pulse Resp B/P (MAP) Pulse Ox O2 Delivery O2 Flow Rate FiO2 06/11/24 16:55 99.0 68 18 140/64 (89) 90 99.0 06/11/24 07:53 Nasal Cannula* 2 28 Total Intake and Output 06/10/24 06/10/24 06/11/24 15:00 23:00 07:00 Intake Total 100 ml 3880 ml 625 ml Output Total 40 ml Balance 100 ml 3840 ml 625 ml medications Current Medications Medications Dose Ordered Sig/Ulices Route Start Time Stop Time Status Last Admin Dose Admin Sodium Chloride 10 ml Q8HR IV 06/08/24 22:00 06/11/24 13:26 10 ML Ondansetron HCl 4 mg Q4HP PRN IV 06/08/24 21:30 Docusate Sodium 100 mg BIDPRN PRN PO 06/08/24 21:30 Nitroglycerin 0.4 mg Q5MINP PRN SL 06/08/24 21:30 Morphine Sulfate 2 mg Q30M PRN IV 06/08/24 21:30 Dextrose/Sodium Chloride 1,000 ml @ 75 mls/hr [id number] IV 06/09/24 19:00 06/11/24 11:15 75 MLS/HR Acetaminophen/ Hydrocodone Bitart 1 tab Q4HP PRN PO 06/09/24 19:00 06/11/24 05:17 1 TAB Morphine Sulfate 2 mg Q2HP PRN IV 06/09/24 19:00 06/11/24 08:35 2 MG Acetaminophen/ Hydrocodone Bitart 1 tab Q4HP PRN PO 06/09/24 19:00 Enoxaparin Sodium 40 mg DAILY SC 06/10/24 10:00 06/10/24 09:01 40 MG Pantoprazole Sodium 40 mg DAILY@0600 PO 06/10/24 06:00 06/11/24 05:14 40 MG Piperacillin Sod/ Tazobactam Sod 100 ml @ 25 mls/hr Q8HR IV 06/09/24 22:00 06/11/24 13:24 25 MLS/HR Examination AFVSS. Abdomen soft, ND and NT. Incisions C/D/I. Drain with light ss fluid laboratory and microbiology Laboratory Tests 06/09/24 05:36 Test 06/09/24 05:36 Range/Units Serum Glucose 143 H 74-106 mg/dL Labs and/or images reviewed: Labs reviewed by me Problem List/Assessment/Plan Problems(with codes): (1) Acute appendicitis Problem List/Assessment/Plan May discharge home from surgical standpoint. Drain teaching. Discharge on Augmentin and Flagyl for 12 days and [place] 5/325 1 tab q 6 hrs PRN pain #30. Follow up with me as outpt. Pt must call [phone] for appointment. Remove dressings tomorrow, leave steri strips on. May shower. Resume recommended diet by PCP Plan discussed with: Patient My Orders My Orders Orders - HOSSEIN JEFFERSON MD Procedure Category Date Status Time Communication Order ORDERS 06/10/24 Transmitted 18:38 HOSSEIN JEFFERSON MD Jun 11, 2024 17:06
[2024-06-11] MEDS ORDERED: AUG875T PO (19:07)
[2024-06-11] MEDS ORDERED: HYDR-4902 PO (19:07)
[2024-06-11] MEDS ORDERED: NALO4SPR2 (19:07)
[2024-06-11] MEDS ORDERED: DOCU-94 PO (19:07)
[2024-06-11] MEDS ORDERED: METR-344 PO (19:07)
--- NOTE | 2024-06-11 19:10 | DVHDS2 ---
Discharge Summary Date of Admission Jun 08, 2024 at 21:19 Date of Discharge: Jun 11, 2024 Labs/Diagnostic Data: Laboratory Results Test 06/09/24 16:45 06/09/24 05:36 06/08/24 11:57 Prothrombin Time 11.3 sec (9.3-11.8) Prothrombin Time INR 1.07 (0.9-1.15) Activated Partial Thromboplast Time 25.2 SEC (24.5-34.5) White Blood Count 9.2 10^3/uL (4.4-10.8) Red Blood Count 4.47 10^6/uL (4.0-5.20) Hemoglobin 14.1 g/dL (12.2-16.2) Hematocrit 40.9 % (36.0-46.0) Mean Corpuscular Volume 91.6 fL (80.0-100.0) Mean Corpuscular Hemoglobin 31.7 pg (28.0-32.0) Mean Corpuscular Hemoglobin Concent 34.6 g/dL (32.0-36.0) Red Cell Distribution Width 12.8 % (11.8-14.3) Platelet Count 428 10^3/uL (140-450) Mean Platelet Volume 7.0 fL (6.9-10.8) Neutrophils (%) (Auto) 74.4 % (37.0-80.0) Lymphocytes (%) (Auto) 15.7 % (10.0-50.0) Monocytes (%) (Auto) 7.9 % (0.0-12.0) Eosinophils (%) (Auto) 1.3 % (0.0-7.0) Basophils (%) (Auto) 0.7 % (0.0-2.0) Neutrophils # (Auto) 6.9 10 ^3/uL (1.6-8.6) Lymphocytes # (Auto) 1.4 10 ^3/uL (0.4-5.4) Monocytes # (Auto) 0.7 10 ^3/uL (0-1.3) Eosinophils # (Auto) 0.1 10 ^3/uL (0-0.8) Basophils # (Auto) 0.1 10 ^3/uL (0-0.2) Nucleated Red Blood Cells 0.0 % Sodium Level 141 mmol/L (136-145) Potassium Level 3.7 mmol/L (3.5-5.1) Chloride Level 107 mmol/L (98-107) Carbon Dioxide Level 24 mmol/L (20-31) Anion Gap 10 (5-15) Blood Urea Nitrogen < 5 mg/dL (9-23) Creatinine 0.67 mg/dL (0.550-1.02) Glomerular Filtration Rate Calc 95 mL/min (>90) BUN/Creatinine Ratio 7.5 (10.0-20.0) Serum Glucose 143 mg/dL (74-106) Calcium Level 9.8 mg/dL (8.7-10.4) Total Bilirubin 0.6 mg/dL (0.2-1.0) Aspartate Amino Transferase (AST) 50 U/L (13-40) Alanine Aminotransferase (ALT) 25 U/L (7-40) Alkaline Phosphatase 125 U/L (46-116) Total Protein 7.3 g/dL (5.7-8.2) Albumin 4.4 g/dL (3.2-4.8) Hepatitis B Surface Antigen Negative (Negative) Hepatitis C Antibody Negative (Negative) Urine Color Colorless (Yellow) Urine Clarity Clear (Clear) Urine pH 7.0 (5.0-9.0) Urine Specific [place] 1.003 (1.001-1.035) Urine Protein Negative (Negative) Urine Ketones Negative (Negative) Urine Blood Negative /uL (Negative) Urine Nitrite Negative (Negative) Urine Bilirubin Negative (Negative) Urine Urobilinogen Normal mg/dL (Negative) Urine Leukocyte Esterase Negative /uL (Negative) Urine RBC None seen /hpf (0 - 4) Urine WBC None seen /hpf (0 - 5) Urine Squamous Epithelial Cells Few /hpf (<5) Urine Bacteria None seen /hpf (None Seen) Urine Glucose Normal mg/dL (Normal) Other Laboratory Tests 06/09/24 05:36 Brief Hx & Hospital Course: 68-year-old female with no significant past medical history, presented to the hospital with abdominal pain in the right lower quadrant which worsens with the fluid intake found to have acute appendicitis. Patient was with the hospitalist team but knows general surgery was consulted. I took over the care of the patient and. General surgery consultation start. Patient was diagnosed with the acute appendicitis with contained perforation status post laparoscopic cholecystectomy with a DONTRELL drain placement. Patient was managed with pain medication and IV antibiotics. Patient was cleared by General surgery to be discharged with p.o. antibiotics on p.o. pain meds. Patient was being discharged under stable condition with DONTRELL drain teaching as it will be reviewed by Dr. Rayshawn Finley within a week: Discharge when she follows up with him. Condition at Discharge: Stable Final Diagnosis/Problems List 68-year-old female with no significant past medical history, presented to the hospital with abdominal pain in the right lower quadrant which worsens with the fluid intake found to have 1. Acute appendicitis with contained perforation status post laparoscopic appendectomy 2. Transaminitis 3. Moderate obesity class 1 -strict NPO, IV fluids, IV antibioti Discharge Disposition: Home with [facility] Discharge Will this Physician continue t: No Discharge Instruct/Medications Diet: Cardiac 2g Na,low cholest Activity: See Comment Activity comment: No driving, no signing legal documents, no playing on heavy machinery while on narcotics Follow Up/Referral: Follow up with the PCP in 1-2 weeks Follow up with Dr. Bronson Finley in one week Medications: Augmentin, Flagyl, [place], Narcan, Colace as prescribed Discharge Statement: "Patient was advised to return to the ER or call 911 if any headaches, dizziness, shortness of breath, chest pain, abdominal pain, bleeding, fevers, or worsening of medical condition. Patient was counseled about treatment plan, medications, possible side effects, patientverbalized understanding. All questions were answered to the best of my ability. This discharge took greater then 30 minutes in planning, reviewing documentation, counseling the patient, and discussing with other team members." ASSESSMENT ASSESSMENT Assessment 68-year-old female with no significant past medical history, presented to the hospital with abdominal pain in the right lower quadrant which worsens with the fluid intake found to have 1. Acute appendicitis with contained perforation status post laparoscopic appendectomy 2. Transaminitis 3. Moderate obesity class 1 -strict NPO, IV fluids, IV antibioti Date of Service: Jun 11, 2024 Billing Provider: CICI JARRETT MD Common Visit Codes: 44967-UXQ/OBS DISCH DAY >30min CICI JARRETT MD Jun 11, 2024 19:10
[2024-06-12 01:00] VITALS: BP 152/65; PULSE 69; RESP 19; TEMP 98.6; O2SAT 91
[2024-06-12 05:00] VITALS: BP 148/64; PULSE 60; RESP 18; TEMP 98.3; O2SAT 94
[2024-06-12 08:40] VITALS: BP 144/65; PULSE 70; RESP 20; TEMP 98.7; O2SAT 91
== END 2024-06-12 11:57 | disposition home health service (06) | DRG 224 ==
LOC: ER 11:55 → TELE 21:19 → TELE-WESTW 23:24
PROVIDERS: ADMIT Nurse Practitioner Family; ATTEND Internal Medicine
PROC: 0DNJ4ZZ Release Appendix, Percutaneous Endoscopic Approach (ICD-10-PCS; 2024-06-09)
PROC: 0W9G4ZZ Drainage of Peritoneal Cavity, Percutaneous Endoscopic Approach (ICD-10-PCS; 2024-06-09)
PROC: 0DTJ4ZZ Resection of Appendix, Percutaneous Endoscopic Approach (ICD-10-PCS; principal; 2024-06-09 17:33)
DX: K35.33 Acute appendicitis with perforation, localized peritonitis, and gangrene, with abscess (principal); Z68.32 Body mass index [BMI] 32.0-32.9, adult; E66.01 Morbid (severe) obesity due to excess calories; K52.9 Noninfective gastroenteritis and colitis, unspecified; K80.20 Calculus of gallbladder without cholecystitis without obstruction; R73.03 Prediabetes; R74.01 Elevation of levels of liver transaminase levels
CPT/HCPCS: 36415; 71045; 74176; 80048; 80053; 81001; 85025; 85610; 85730; 86803; 86850; 86900; 86901; 87340; 99291; G0378; J0330; J0694; J1100; J2003; J2405; J2543; J2704; J3490